=== PATIENT | female | born 1960 | race Caucasian/White ===

== ENCOUNTER 2016-09-05 05:49 | Day surgery (SDC) | payer BC ==
[2016-09-05] MEDS ORDERED: ACETAMINOPHEN 1,000 MG/100 ML BTL IV ONE (06:00)
[2016-09-05] MEDS ORDERED: ROPIVACAINE HCL (NAROPIN) /PF 5MG/ML 20ML VIAL IV ONE ×2 (11:35→13:58)
[2016-09-05] MEDS ORDERED: DEXAMETHASONE 4 MG/ML 1ML VIAL IVP ONE (11:35)
[2016-09-05] MEDS ORDERED: PROPOFOL 10 MG/ML VIAL IV ONE (13:58)
[2016-09-05] MEDS ORDERED: ONDANSETRON HCL IV 4 MG/2 ML VIAL IVP ONE (13:58)
[2016-09-05] MEDS ORDERED: LIDOCAINE 2% MDV (20MG/ML) 20ML VIAL IV ONE (13:58)
[2016-09-05] MEDS ORDERED: MIDAZOLAM HCL 2MG/2ML VIAL IV ONE (13:58)
[2016-09-05] MEDS ORDERED: FENTANYL PF 100MCG/2ML VIAL IV ONE (13:58)
--- NOTE | 2016-09-07 10:56 | Operative Note ---
DATE OF SURGERY: 09/05/2016 Surgeon: John Horta DO PREOPERATIVE DIAGNOSIS: Trigger thumb of the left thumb. POSTOPERATIVE DIAGNOSIS: Trigger thumb of the left thumb. OPERATION: Tenotomy A1 anuja of the left thumb using 3.5 loop magnification. DESCRIPTION OF PROCEDURE: This 56-year-old female was taken to the operating room and placed in the supine position on the operating room table. Assisted regional anesthesia was used for the surgical procedure, and the left upper extremity was exsanguinated and tourniquet inflated to 250 mmHg after prepping and draping in a normal fashion. Incision was made in the flexor crease of the MCP joint of the left thumb, and dissection was carried down through the skin and subcutaneous tissue. The radial digital nerve was identified and protected. We then easily identified the proximal edge of the A1 anuja which was incised from its proximal to its distal margin under direct vision. The tendon itself demonstrated some bulbous appearance to the tendon at the proximal portion of the A1 anuja. With the anuja opened, the finger was flexed and extended and no catching or locking of the thumb was identified. The wound was irrigated and closed with interrupted 6-0 nylon suture. Sterile dressings were applied and the patient taken to the recovery room in satisfactory condition. GROSS PATHOLOGY: This patient demonstrated a dilation fusiform type of the flexor pollicis longus tendon. The A1 anuja was incised to allow free passage of the tendon without catching or locking. CC: LILIBETH OZUNA MD, FACP [facility]
== END 2016-09-05 08:55 | disposition home or self-care (01) ==
LOC: SUR 05:49
PROVIDERS: ATTEND Orthopaedic Surgery
DX: M65.312 Trigger thumb, left thumb (principal); I10 Essential (primary) hypertension
CPT/HCPCS: 64721; 01810; 64450; J2405; J3010; J2795; 76942